=== PATIENT | male | born 1945 | race Caucasian/White ===

== ENCOUNTER 2017-02-02 10:04 | Inpatient (IN) | payer MEDICARE, OTHER ==
[~2017-02-02] VITALS: Ht 177.8 cm; Wt 98.1 kg
[~2017-02-02 10:04] MED LIST: COZAAR 25MG25 MG/TAB PO
[2017-04-09] VITALS (10 sets, daily range): BP systolic 113–138; BP diastolic 54–89; PULSE 63–72; TEMP 97.6–98.2
[2017-04-09] MEDS ORDERED: FOLIC ACID0.4 MG PO (08:37)
[2017-04-09] MEDS ORDERED: VITAMINC1000TA (08:38)
[2017-04-09] MEDS ORDERED: FERROUS SU325 MG/TAB PO (08:38)
[2017-04-10] VITALS: BP 129/62; PULSE 81; TEMP 98.4
[2017-04-10 04:53] VITALS: BP 128/65; PULSE 78; TEMP 98.2
[2017-04-10 06:53] LABS: HEMATOCRIT 43.8 % (42.0-52.0); HEMOGLOBIN 15.4 g/dl (13.5-18.0)
[2017-04-10 07:39] VITALS: BP 144/73; PULSE 81; TEMP 99
[2017-04-10] MEDS ORDERED: ASPI325T6 PO (11:25)
[2017-04-10] MEDS ORDERED: NORCO 325 MG-7.1 TAB PO (11:26)
[2017-04-10] MEDS ORDERED: ROXICODONE 55 MG/TAB PO (11:28)
[2017-04-10 11:42] VITALS: BP 163/78; PULSE 83; TEMP 99.4
== END 2017-04-10 14:36 | disposition home or self-care (01) | DRG 470 ==
LOC: JCC 04-09 07:30
PROVIDERS: Orthopaedic Surgery
PROC: 0SRC0J9 Replacement of Right Knee Joint with Synthetic Substitute, Cemented, Open Approach (ICD-10-PCS; principal; 2017-04-09 13:10)
DX: M17.11 Unilateral primary osteoarthritis, right knee (principal)
CPT/HCPCS: A4314; A9284; C1713; C1776; J0690; J2250; J2704; J3010; J3260; J7120

== ENCOUNTER 2017-04-02 13:26 | Outpatient (RCR) | payer MEDICARE, OTHER | END 2017-04-03 15:42 | disposition home or self-care (01) | LOC: MKS.ESL.PT 13:26 | DX: Z01.818 Encounter for other preprocedural examination (principal); M17.11 Unilateral primary osteoarthritis, right knee | CPT/HCPCS: G8978-GP; G8979-GP; G8980-GP ==

== ENCOUNTER → 2017-04-02 | Outpatient (CLI) | payer MEDICARE, OTHER ==
[2017-04-02 13:34] LABS: HIV 1/2 Antibodies Non-Reactive; HIV-1p24 Antigen Non-Reactive
== END ==
LOC: COL.LAB 11:42
PROVIDERS: Orthopaedic Surgery
DX: Z01.812 Encounter for preprocedural laboratory examination (principal); M17.11 Unilateral primary osteoarthritis, right knee

== ENCOUNTER 2017-07-11 10:00 | Outpatient (RCR) | payer MEDICARE, OTHER ==
[~2017-07-11 10:00] MED LIST changes: +ASPI325T6 PO; +FERROUS SU325 MG/TAB PO; +FOLIC ACID0.4 MG PO; +NORCO 325 MG-7.1 TAB PO; +ROXICODONE 55 MG/TAB PO; +VITAMINC1000TA
== END 2017-07-12 11:25 | disposition home or self-care (01) ==
LOC: MKS.ESL.PT 10:00
DX: Z47.1 Aftercare following joint replacement surgery (principal); Z96.651 Presence of right artificial knee joint; M17.11 Unilateral primary osteoarthritis, right knee
CPT/HCPCS: G8978-GP; G8979-GP; G8980-GP

== ENCOUNTER 2018-01-22 10:24 | Inpatient (IN) | payer MEDICARE, OTHER ==
[~2018-01-22] VITALS: Ht 177.8 cm; Wt 99.6 kg
[2018-03-05] VITALS (11 sets, daily range): BP systolic 118–140; BP diastolic 51–81; PULSE 51–75; TEMP 98–98.6
[2018-03-05] MEDS ORDERED: GLUCOPHAGE500 MG/TAB PO (07:41)
[2018-03-06 00:30] VITALS: BP 132/85; PULSE 87; TEMP 98.3
[2018-03-06 03:40] VITALS: BP 117/57; PULSE 81; TEMP 98.6
[2018-03-06 08:02] LABS: HEMATOCRIT 44.3 % (42.0-52.0); HEMOGLOBIN 15.7 g/dl (13.5-18.0)
[2018-03-06 08:26] VITALS: BP 125/63; PULSE 66; TEMP 97.5
[2018-03-06 12:15] VITALS: BP 125/64; PULSE 56; TEMP 98.3
[2018-03-06 16:43] VITALS: BP 121/60; PULSE 80; TEMP 98.6
[2018-03-06 20:02] VITALS: BP 130/61; PULSE 71; TEMP 98.9
[2018-03-06] MEDS ORDERED: ASPI325T6 PO (21:35)
[2018-03-06] MEDS ORDERED: NORCO 325 MG-7.1 TAB PO (21:35)
[2018-03-06] MEDS ORDERED: ROXICODONE 55 MG/TAB PO (21:37)
[2018-03-07 00:33] VITALS: BP 105/78; PULSE 67; TEMP 98.7
[2018-03-07 05:00] VITALS: BP 131/75; PULSE 77; TEMP 98.3
[2018-03-07 05:58] LABS: BASO % 0.2 % (0.0-2.0); EOS # 0.2 (0.0-0.7); EOS % 2.4 % (0-4.0); GRAN # 6.3 (1.4-6.5); HEMATOCRIT 42.6 % (42.0-52.0); HEMOGLOBIN 14.9 g/dl (13.5-18.0); LYMPH # 1.2 (1.2-3.4); LYMPH % 13.5 % (20.0-51.0); MEAN CELL VOLUME 86 fl (80.0-100.0); MEAN CORPUSCULAR HEMOGLOBIN 30 pg (27.0-31.0); MEAN CORPUSCULAR HGB CONC 35 g/dl (33.0-37.0); MEAN PLATELET VOLUME 10.1 fl (7.4-10.4); MONO % 11.6 % (1.7-9.3); PLATELET COUNT 145 K/mm3 (130-400); RED BLOOD COUNT 4.98 M/mm3 (4.20-5.60); REDCELL DISTRIBUTION WIDTH-CV 13.2 % (11.5-14.5)
[2018-03-07 06:10] LABS: CALCIUM 8.5 mg/dL (8.4-10.2); CREATININE, serum 0.85 mg/dL (0.66-1.25); POTASSIUM 4.2 mmol/L (3.4-5.0)
[2018-03-07 08:12] VITALS: BP 145/67; PULSE 79; TEMP 98
== END 2018-03-07 10:45 | disposition home or self-care (01) | DRG 470 ==
LOC: JCC 03-05 06:40
PROVIDERS: Orthopaedic Surgery; Physician Assistant
PROC: 0SRD0J9 Replacement of Left Knee Joint with Synthetic Substitute, Cemented, Open Approach (ICD-10-PCS; principal; 2018-03-05 12:35)
DX: M17.12 Unilateral primary osteoarthritis, left knee (principal); I10 Essential (primary) hypertension; E11.65 Type 2 diabetes mellitus with hyperglycemia; E78.5 Hyperlipidemia, unspecified
CPT/HCPCS: 99223; 99231-AI; A4314; A9284; C1713; C1776; J0690; J1815; J1885; J2250; J2405; J2704; J3010; J7030; J7120

== ENCOUNTER 2018-02-19 13:01 | Outpatient (RCR) | payer MEDICARE, OTHER ==
[2018-03-05] MEDS ORDERED: GLUCOPHAGE500 MG/TAB PO (07:41)
[2018-03-06] MEDS ORDERED: NORCO 325 MG-7.1 TAB PO (21:35)
[2018-03-06] MEDS ORDERED: ASPI325T6 PO (21:35)
[2018-03-06] MEDS ORDERED: ROXICODONE 55 MG/TAB PO (21:37)
== END 2018-03-07 08:13 | disposition home or self-care (01) ==
LOC: MKS.ESL.PT 13:01
DX: Z47.1 Aftercare following joint replacement surgery (principal); Z96.652 Presence of left artificial knee joint
CPT/HCPCS: G8978-GP; G8979-GP; G8980-GP

== ENCOUNTER → 2018-02-28 | Outpatient (CLI) | payer MEDICARE, OTHER ==
[2018-02-28 12:48] LABS: HIV 1/2 Antibodies Non-Reactive; HIV-1p24 Antigen Non-Reactive
== END ==
LOC: COL.LAB 11:47
PROVIDERS: Orthopaedic Surgery
DX: Z01.812 Encounter for preprocedural laboratory examination (principal); M17.12 Unilateral primary osteoarthritis, left knee

== ENCOUNTER 2018-05-28 11:15 | Outpatient (RCR) | payer MEDICARE, OTHER ==
[~2018-05-28 11:15] MED LIST changes: +GLUCOPHAGE500 MG/TAB PO
== END 2018-06-10 | disposition home or self-care (01) ==
LOC: MKS.ESL.PT
DX: Z47.1 Aftercare following joint replacement surgery (principal); Z96.652 Presence of left artificial knee joint
CPT/HCPCS: G8978-GP; G8979-GP